=== PATIENT | female | born 1965 ===

== ENCOUNTER 2018-10-25 14:57 | Outpatient (CLI) | payer OTHER | END 2018-10-25 14:58 | disposition home or self-care (01) | LOC: C.USIC 14:57 | DX: E04.1 Nontoxic single thyroid nodule (principal) ==

== ENCOUNTER 2018-11-05 08:12 | Outpatient (CLI) | payer OTHER | END 2018-11-05 08:13 | disposition home or self-care (01) | LOC: C.LAB 08:12 | DX: E05.80 Other thyrotoxicosis without thyrotoxic crisis or storm (principal); E11.65 Type 2 diabetes mellitus with hyperglycemia; E78.2 Mixed hyperlipidemia ==